=== PATIENT | female | born 1990 | race African-American/Black ===

== ENCOUNTER 2018-11-07 16:48 | Emergency (ER) | payer MEDICAID ==
[~2018-11-07 16:48] MED LIST: Iopamidol 370 76% 100 ML VIAL ONE
[2018-11-07] MEDS ORDERED: Morphine 4 MG/ML VIAL ONE ×2 (16:59→19:12)
[2018-11-07] MEDS ORDERED: Sodium Chloride 0.9% 1,000 ML ONE (16:59)
[2018-11-07] MEDS ORDERED: Clindamycin/D5W 900 mg/50 ml Premix Bag ONE (16:59)
[2018-11-07 17:33] LABS: #Basophils 0.1 thou/uL (0.0-0.2); #Eosinphils 0.1 thou/uL (0.0-0.7); #Lymphocytes 1.9 thou/uL (1.20-3.40); #Monocytes 1.2 thou/uL (0.11-0.59); #Neutrophils 9.8 thou/uL (1.40-6.50); %Basophils 1.1 % (0.0-1.0); %Eosinophils 0.9 % (0.0-10.0); %Lymphocytes 14.5 % (21.0-51.0); %Monocytes 9.2 % (0.0-10.0); %Neutrophils 74.3 % (42.0-75.0); Hemoglobin 13.9 g/dL (12.0-16.0); Mean Corpuscular HGB CONC 32.5 g/dL (32.0-36.0); Mean Corpuscular Hemoglobin 28.3 pg (27.0-31.0); Mean Corpuscular Volume 87.1 fL (78.0-98.0); Mean Platelet Volume 6.7 fL (7.4-10.4); Platelet Count 242 thou/uL (130-400); RBC Distribution Width 12.4 % (11.5-14.5); Red Blood Cell (RBC) Count 4.93 mill/uL (4.20-5.40); White Blood Cell (WBC) Count 13.2 thou/uL (4.8-10.8)
[2018-11-07 17:41] LABS: Bilirubin Negative (Negative); Blood, Urine Moderate (Negative); Clarity Cloudy (Clear); Glucose, Urine (Dipstick) Negative (Negative); Leukocyte Negative (Negative); Nitrite Negative (Negative); Protein, Urine (Dipstick) 100 mg/dL (Neg-Trace); Specific Gravity, Urine 1.025 (1.005-1.030); Urobilinogen 0.2 mg/dL (0.2-1.0)
[2018-11-07 17:47] LABS: Bacteria/HPF 3+ HPF (None Seen); RBC/HPF 21-50 HPF (0-3); WBC/HPF 0-3 HPF (0-3)
[2018-11-07 17:50] LABS: ALT (SGPT) 18 U/L (8-55); AST (SGOT) 16 U/L (5-34); Albumin 3.9 g/dL (3.5-5.0); Alkaline Phosphatase 83 U/L (40-150); Anion Gap 11 mmol/L (10-20); BUN (Urea Nitrogen) 12 mg/dL (7.0-18.7); Bilirubin, Total 0.5 mg/dL (0.2-1.2); Calc. Creatinine Clearance 0 mL/min (70-130); Carbon Dioxide 22 mmol/L (22-29); Chloride 107 mmol/L (98-107); Estimated GFR-MDRD Greater than 90; Globulin 3.5 g/dL (2.4-3.5); Glucose 93 mg/dL (70-105); Potassium 3.8 mmol/L (3.5-5.1); Protein, Total 7.4 g/dL (6.0-8.3); Sodium 136 mmol/L (136-145)
[2018-11-07 18:03] LABS: Pregnancy Test - Urine (BHCG) Negative (Negative)
[2018-11-07 18:04] LABS: Pregu Control Background? CLEAR/WHITE (CLR/WHITE); Pregu Control Bar Appear? YES (CONTROL BAR); Specific Gravity 1.025 (1.002-1.036)
--- NOTE | 2018-11-07 18:54 | CT ---
EXAM: CT Neck Soft Tissue W Con PROVIDED CLINICAL HISTORY: Right-sided neck and throat swelling. Soreness to right side of mouth for 4 days. Swelling has progre ssed. COMPARISON: 06/20/2009 FINDINGS: There is subcutaneous soft tissue swelling seen involving the right facial subcutaneous soft tissues extending from the level of the inferior aspect right zygomatic bone to the level of the mandible. There is overlying thickening of the platysma muscle as well. No fluid collection is seen in this reg ion to suggest an abscess. There are mildly prominent lymph node seen at the angle of the right mandible largest measuring 1.1 cm in short axis dimension likely reactive in origin. Inflammatory trevon nges involving the right facial soft tissues extend to the level of the inferior aspect of the right parotid gland, but there is no significant asymmetry in either parotid gland to suggest that fi ndings on the right are related to sialadenitis. The bilateral parotid and submandibular glands have a normal appearance bilaterally. There is mild enlargement of the palatine tonsils as well as lingual tonsils bilaterally. There is no fluid collection seen in this region to suggest abscess. There is narrowing of the airway at the level of the enlarged palatine tonsils. Prevertebral space has a normal appearance. Carotid spaces are symmetric and normal in appearance meagan aterally. There is suggestion of dental caries involving the most posterior maxillary molars bilaterally. No pe riapical lucency is seen to suggest periapical abscesses. The thyroid gland has a normal appearance. Mucosal thickening is seen in the bilateral ethmoidal air cells each maxillary antrum air-fluid level s in each maxillary antrum which can be seen with more acute sinusitis. Osseous structures have a normal appearance. The lung apices are clear. There are mild bosentan changes in the right lung apex. IMPRESSION: 1. Subcutaneous edema and inflammatory changes within the right facial soft tissues adjacent to the m andible and maxilla of uncertain etiology. This could be related to cellulitis. No fluid collection is seen to suggest an abscess. 2. Reactive lymphadenopathy at the angle of the mandible on the right. 3. Enlargement of the palatine tonsils and lingual tonsils bilaterally. No abscess collection is visu alized. 4. Findings suggestive of dental caries involving the most posterior maxillary molars bilaterally. 5. Sinus disease.
[2018-11-07] MEDS ORDERED: Dexamethasone 10 MG/ML VIAL ONE (19:12)
[2018-11-07] MEDS ORDERED: Ketorolac Tromethamine 30 MG/ML VIAL ONE (19:12)
== END 2018-11-07 19:45 | disposition home or self-care (01) ==
LOC: MADERS 16:48
DX: L03.211 Cellulitis of face (principal); I10 Essential (primary) hypertension; I49.9 Cardiac arrhythmia, unspecified; F41.9 Anxiety disorder, unspecified; F31.9 Bipolar disorder, unspecified; F20.9 Schizophrenia, unspecified; F17.210 Nicotine dependence, cigarettes, uncomplicated
CPT/HCPCS: 36415; 70491; 80053; 81003; 81015; 81025; 83605; 85025; 87040; 87086; 96365; 96375; 96376; J1100; J1885; J2270; J3490; J7050; Q9967

== ENCOUNTER 2019-01-24 16:01 | Emergency (ER) | payer MEDICAID, OTHER | END 2019-01-24 16:30 | disposition home or self-care (01) | LOC: MADERS 16:01 | DX: T78.40XA Allergy, unspecified, initial encounter (principal); I10 Essential (primary) hypertension; F41.9 Anxiety disorder, unspecified; F31.9 Bipolar disorder, unspecified; F20.9 Schizophrenia, unspecified; F17.210 Nicotine dependence, cigarettes, uncomplicated; Z79.899 Other long term (current) drug therapy | CPT/HCPCS: 99281 ==